=== PATIENT | female | born 2000 | race Two or more races ===

== ENCOUNTER 2024-01-29 10:23 | Emergency (ER) | payer MEDICAID, OTHER ==
[~2024-01-29] VITALS: Ht 154.9 cm; Wt 76.4 kg
[~2024-01-29 10:23] MED LIST: LAMO-24 PO; [UNRECOGNIZED DRUG - CODE] PR
[2024-01-29 10:29] VITALS: TEMP 98.7
[2024-01-29] MEDS ORDERED: BUDE10.27 IH (10:36)
[2024-01-29] MEDS ORDERED: MIDA5SPR NASAL (10:36)
[2024-01-29] MEDS ORDERED: BUDE10.26 IH (10:36)
[2024-01-29] MEDS ORDERED: ALBU18HF12 IH ×2 (10:36→13:36)
[2024-01-29 12:26] VITALS: BP 123/74
[2024-01-29] MEDS: PredniSONE 20 MG TABLET PO ONE (13:13)
[2024-01-29] MEDS ORDERED: PRED-554 PO (13:36)
[2024-01-29] MEDS ORDERED: AZIT250T9 PO (13:36)
[2024-01-29] MEDS: IPRATROPIUM BROMIDE 0.5 MG/2.5 ML NEB SOLUTION NEB ONE (13:39)
[2024-01-29 13:40] VITALS: PULSE 78; RESP 16; O2SAT 99
[2024-01-29] MEDS: ALBUTEROL SULFATE 2.5 MG/0.5 ML NEB SOLUTION NEB ONE (13:40)
[2024-01-29 13:44] VITALS: PULSE 76; RESP 18; O2SAT 99
[2024-01-29] MEDS: ALBUTEROL SULFATE HFA 90 MCG/PUFF 8 GM INHALER IH ONE (13:55)
[2024-01-29 13:58] VITALS: PULSE 88; RESP 16; O2SAT 99
== END 2024-01-29 13:59 | disposition home or self-care (01) ==
LOC: EMS 10:46
DX: J45.909 Unspecified asthma, uncomplicated (principal)
CPT/HCPCS: 99283; 94640; J7512; J3535